=== PATIENT | female | born 1995 | race Caucasian/White ===

== ENCOUNTER 2021-09-07 12:05 | Emergency (ER) | payer OTHER ==
[~2021-09-07] VITALS: Ht 165.1 cm; Wt 77.1 kg
[2021-09-07 12:05] VITALS: BP 120/62
== END 2021-09-07 18:33 | disposition left against medical advice (07) ==
LOC: EDSEX 12:05 → ER 12:05
DX: M54.50 Low back pain, unspecified (principal); Z53.21 Procedure and treatment not carried out due to patient leaving prior to being seen by health care provider; V43.52XA Car driver injured in collision with other type car in traffic accident, initial encounter; Y93.89 Activity, other specified; Y92.89 Other specified places as the place of occurrence of the external cause; Y99.8 Other external cause status
CPT/HCPCS: 72040; 72110; 73020